=== PATIENT | male | born 1940 | race Caucasian/White ===

== ENCOUNTER 2017-05-13 09:47 | Inpatient (IN) | payer OTHER ==
[~2017-05-13] VITALS: Ht 175.3 cm; Wt 102.1 kg
[~2017-05-13 09:47] MED LIST: ACCUNEB0.63 MG/3 IH; ASPIR 8181 MG; CARVEDILOL12.5 MG; COZAAR100 MG; GLIMEPIRIDE2 MG; LASIX20 MG; LOZOL2.5 MG PO; PROTONIX40 M1; SIMVASTATIN40 MG; TENORMIN100 MG PO
[2017-05-18] MEDS ORDERED: LEVAQUIN750 MG PO (18:56)
[2017-05-18] MEDS ORDERED: MEDROLPACK PO (18:57)
[2017-05-18] MEDS ORDERED: FLOVENT DISKU100 MCG IH (18:58)
[2017-05-18] MEDS ORDERED: VENTOLIN HFA18 GM IH (18:58)
== END 2017-05-18 19:19 | disposition home or self-care (01) | DRG 194 ==
LOC: ER 09:47 → MEDI 19:33 → MEDJ 05-14 18:27
PROC: 3E0F7GC Introduction of Other Therapeutic Substance into Respiratory Tract, Via Natural or Artificial Opening (ICD-10-PCS; principal; 2017-05-13)
PROC: 4A033R1 Measurement of Arterial Saturation, Peripheral, Percutaneous Approach (ICD-10-PCS; 2017-05-13)
PROC: BB24ZZZ Computerized Tomography (CT Scan) of Bilateral Lungs (ICD-10-PCS; 2017-05-13)
PROC: 8E0ZXY6 Isolation (ICD-10-PCS; 2017-05-14)
DX: J18.9 Pneumonia, unspecified organism (principal); J98.11 Atelectasis; J44.1 Chronic obstructive pulmonary disease with (acute) exacerbation; J44.0 Chronic obstructive pulmonary disease with (acute) lower respiratory infection; I10 Essential (primary) hypertension; E11.9 Type 2 diabetes mellitus without complications; I25.10 Atherosclerotic heart disease of native coronary artery without angina pectoris; N40.0 Benign prostatic hyperplasia without lower urinary tract symptoms; R09.02 Hypoxemia; J20.9 Acute bronchitis, unspecified

== ENCOUNTER 2017-10-27 18:55 | Emergency (ER) | payer OTHER ==
[~2017-10-27] VITALS: Ht 175.3 cm; Wt 99.8 kg
[~2017-10-27 18:55] MED LIST changes: +FLOVENT DISKU100 MCG IH; +LEVAQUIN750 MG PO; +MEDROLPACK PO; +VENTOLIN HFA18 GM IH
[2017-10-27] MEDS ORDERED: HYDRALAZINE HCL50 MG (19:04)
[2017-10-27] MEDS ORDERED: PLAVIX75 MG (19:05)
[2017-10-27] MEDS ORDERED: TAMS0.4C (19:05)
== END 2017-10-27 23:32 | disposition home or self-care (01) ==
LOC: ER 18:55
DX: J40 Bronchitis, not specified as acute or chronic (principal)

== ENCOUNTER 2018-02-28 08:43 | Emergency (ER) | payer OTHER ==
[~2018-02-28] VITALS: Ht 175.3 cm; Wt 99.8 kg
[~2018-02-28 08:43] MED LIST changes: +HYDRALAZINE HCL50 MG; +PLAVIX75 MG; +TAMS0.4C
== END 2018-02-28 13:01 | disposition home or self-care (01) ==
LOC: ER 08:43
DX: E11.649 Type 2 diabetes mellitus with hypoglycemia without coma (principal); N39.0 Urinary tract infection, site not specified; D64.89 Other specified anemias

== ENCOUNTER 2018-04-13 10:16 | Emergency (ER) | payer OTHER ==
[~2018-04-13] VITALS: Ht 175.3 cm; Wt 98.0 kg
== END 2018-04-13 13:01 ==
LOC: ER 10:16
DX: R05 Cough (principal)

== ENCOUNTER 2018-04-19 03:03 | Inpatient (IN) | payer OTHER ==
[~2018-04-19] VITALS: Ht 175.3 cm; Wt 99.8 kg
[2018-04-19] MEDS ORDERED: HYDRALAZINE HCL50 MG (03:20)
[2018-04-19] MEDS ORDERED: FLOVENT DISKU100 MCG (03:23)
[2018-04-19] MEDS ORDERED: SORBUGEN NR 15474 ML (03:24)
--- NOTE | 2018-04-19 03:25 | NUR ---
SE RECIBE PACIENTE ALERTA Y ORIENTADO X3 ACOMPANADO POR FAMILIAR CON LA QUEJA PRINCIPAL DE DISPNEA Y TOS CON FLEMA DESDE HACE DOS SEMANAS EN TX MEDICO, QUE EMPERORA EN LA NOCHE DE HOY.
--- NOTE | 2018-04-19 04:21 | NUR ---
PACIENTE ALERTA Y ORIENTADO POR HAYLEY ESFERAS. R[place] ORIENTA A PACIENTE SOBRE PROCEDIMIENTO Y TX, REFIERE ENTENDER. EXTRAE MUESTRAS DE LABORATORIO CON MEDIDAS ASEPTICAS Y NOTIFICA A MR. ROLON ABG'S Y TERAPIAS PENDIENTES.
--- NOTE | 2018-04-19 07:35 | NUR ---
CONSULTA PACIENTE CON .
--- NOTE | 2018-04-19 07:46 | NUR ---
SE RECIBE PTE ALERTA Y ORIENTADO X3, PTE COLOCADO EN CAMA CON BARANDAS ELEVADAS Y INTERCOM ACCESIBLE. PTE CONECTADO A MONITOR CARDIACO. PTE CON UN H/L PATENTE,DONNA DE EDEMA O ERITEMA. PTE CON CANULA NASAL A 3LTS, Y PENDIENTE A RE-EVALUAR.
[2018-04-22] MEDS ORDERED: VENTOLIN HFA18 GM IH (08:56)
[2018-04-22] MEDS ORDERED: MEDROLPACK PO (08:57)
[2018-04-22] MEDS ORDERED: ANORO ELLIPTA1 EACH IH (08:57)
== END 2018-04-22 12:40 | disposition home or self-care (01) | DRG 194 ==
LOC: ER 03:03 → MEDI 09:32 → SEC-K 09:32 → MEDI 12:44 → MEDJ 12:44 → MEDI 04-22 12:40
PROVIDERS: ADMIT Internal Medicine
PROC: 4A033R1 Measurement of Arterial Saturation, Peripheral, Percutaneous Approach (ICD-10-PCS; principal; 2018-04-19)
PROC: 3E0F7GC Introduction of Other Therapeutic Substance into Respiratory Tract, Via Natural or Artificial Opening (ICD-10-PCS; 2018-04-19)
PROC: BB24ZZZ Computerized Tomography (CT Scan) of Bilateral Lungs (ICD-10-PCS; 2018-04-19)
DX: J16.8 Pneumonia due to other specified infectious organisms (principal); J44.1 Chronic obstructive pulmonary disease with (acute) exacerbation; J98.11 Atelectasis; I25.10 Atherosclerotic heart disease of native coronary artery without angina pectoris; I11.9 Hypertensive heart disease without heart failure; D64.89 Other specified anemias; E11.9 Type 2 diabetes mellitus without complications; N40.0 Benign prostatic hyperplasia without lower urinary tract symptoms; Z87.891 Personal history of nicotine dependence; R09.02 Hypoxemia

== ENCOUNTER 2020-09-03 16:16 | Emergency (ER) | payer OTHER ==
[~2020-09-03] VITALS: Ht 170.2 cm; Wt 95.3 kg
[~2020-09-03 16:16] MED LIST changes: +ANORO ELLIPTA1 EACH IH; +FLOVENT DISKU100 MCG; +SORBUGEN NR 15474 ML
[2020-09-04] MEDS ORDERED: MOXIFLOXACIN H400 MG PO (01:41)
[2020-09-04] MEDS ORDERED: BUDESONIDE0.5 MG/2 M IH (01:41)
[2020-09-04] MEDS ORDERED: MUCINEX DM ER1 EAC1 PO (01:41)
[2020-09-04] MEDS ORDERED: LEVALBUTER1.25 MG/3 IH (01:41)
== END 2020-09-04 05:21 | disposition home or self-care (01) ==
LOC: ER 16:16
DX: J40 Bronchitis, not specified as acute or chronic (principal); J06.9 Acute upper respiratory infection, unspecified; I16.1 Hypertensive emergency; I10 Essential (primary) hypertension; R06.02 Shortness of breath; R05 Cough

== ENCOUNTER 2023-02-14 19:13 | Emergency (ER) | payer OTHER ==
[~2023-02-14] VITALS: Ht 175.3 cm; Wt 81.6 kg
[~2023-02-14 19:13] MED LIST changes: +BUDESONIDE0.5 MG/2 M IH; +LEVALBUTER1.25 MG/3 IH; +MOXIFLOXACIN H400 MG PO; +MUCINEX DM ER1 EAC1 PO
[2023-02-14 21:39] LABS: HEMATOCRIT 32.7 % (39.0-48.0); HEMOGLOBIN 10.8 g/dL (13-16.00); MEAN CELL VOLUME 81.6 fL (80.0-100.00); MEAN CORPUSCULAR HEMOGLOBIN 26.9 pg (27.00-32.0); MEAN CORPUSCULAR HGB CONC 32.9 g/dl (32.0-36.0); PLATELET COUNT 230 K/uL (150-450); RED BLOOD COUNT 4.01 M/uL (4.00-6.00); RED CELL DISTRIBUTION WIDTH 17.4 % (11.5-14.5)
== END 2023-02-14 22:18 | disposition home or self-care (01) ==
LOC: ER 19:14
DX: J10.1 Influenza due to other identified influenza virus with other respiratory manifestations (principal); Z20.822 Contact with and (suspected) exposure to COVID-19